=== PATIENT | female | born 1930 | race Caucasian/White ===

== ENCOUNTER 2017-08-23 13:58 | Emergency (ER) | payer MEDICARE, OTHER ==
[2017-08-23 15:42] LABS: BASOPHILS 0.2 % (0-2); EOSINOPHILS 0.3 % (0-7); HEMATOCRIT 39.3 % (36.0-48.0); HEMOGLOBIN 12.7 g/dL (12-16); IMMATURE GRANULOCYTES 0.3 % (0-5); MCH 27.9 pg (26.0-34.0); MCHC 32.3 g/dL (31.0-37.0); MCV 86.4 fL (80.0-100.0); MEAN PLATELET VOLUME 11.4 fL (7.4-10.4); MONOCYTES 9.4 % (2-11); NEUTROPHILS 74.8 % (40-80); PLATELET COUNT 111 10x3/uL (130-400); RBC 4.55 10x6/uL (4.00-5.40); RDW 14.1 % (11.5-14.5); WBC 5.7 10x3/uL (4.8-10.8)
[2017-08-23 16:01] LABS: ALBUMIN 3.7 g/dL (3.4-5.0); ANION GAP 17.1 mmol/L (8-16); BILIRUBIN - TOTAL 0.37 mg/dL (0.2-1.3); CALCIUM 8.7 mg/dL (8.5-10.1); CARBON DIOXIDE 24.8 mmol/L (21.0-32.0); CREATININE - SERUM 2.4 mg/dL (0.6-1.3); POTASSIUM - SERUM 4.9 mmol/L (3.5-5.1); PROTEIN - SERUM 6.8 g/dL (6.4-8.2)
[2017-08-27 12:41] VITALS: BMI 34.9
== END 2017-08-23 17:43 | disposition home or self-care (01) ==
LOC: D.ER 13:58
PROVIDERS: Family Medicine
DX: F41.9 Anxiety disorder, unspecified (principal); M19.90 Unspecified osteoarthritis, unspecified site; I45.2 Bifascicular block

== ENCOUNTER 2017-08-25 17:02 | Inpatient (IN) | payer MEDICARE, OTHER ==
[~2017-08-25] VITALS: Ht 165.1 cm; Wt 92.9 kg
--- NOTE | ~2017-08-25 | CN ---
PATIENT NAME:PONCE CAMERON MEDICAL RECORD: [id number] : 30 LOCATION:D.M2 D.2105 ADMIT DATE: 08/26/17 ACCOUNT: [id number] CONSULTING PHYSICIAN: TITI NEIR MD REFERRING PHYSICIAN: LAKEISHA GIBBONS MD DATE OF CONSULTATION: 08/26/2017 CONSULT REQUESTING PHYSICIAN: Lakeisha Gibbons MD REASON FOR CONSULTATION: Shortness of breath, possible pneumonia. HISTORY OF PRESENT ILLNESS: Ms. Cameron is an 86-year-old female who was sick for the last few days, feeling very weak. She has cough, which is productive with whitish color sputum production. She also feeling very lethargic and shortness of breath. Denies any fever or chill. There are no night sweats. There is no associated nausea or vomiting, no diarrhea. REVIEW OF SYSTEMS: As in history of present illness. PAST MEDICAL HISTORY: 1. Hypertension. 2. Dependent edema. 3. Anxiety. PAST SURGICAL HISTORY: 1. She has cataract surgery. 2. Bilateral mastectomy. 3. Knee replacement. 4. 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 ALLERGIES: She is allergic to CODEINE. MEDICATIONS: On [employer] was reviewed. PERSONAL AND SOCIAL HISTORY: The patient is an ex-smoker. She is a nondrinker. FAMILY HISTORY: Significant cardiovascular disease and cancer. PHYSICAL EXAMINATION: GENERAL: Now, the patient is lying comfortably. She is not in acute distress. VITAL SIGNS: The blood pressure is 137/52, pulse is 71, respirations 16, temperature 98.1, and SPO2 is 95% on 2 liters nasal cannula. HEENT: Conjunctivae are pink. Sclerae nonicteric. NECK: Supple, no JVD. CHEST: Excursion is minimal on both sides, there is elevated JVD. There are bilateral crackles. No wheezing. HEART: Rhythm regular, normal sound, no murmur. ABDOMEN: Soft, bowel sounds present. No hepatosplenomegaly. RECTAL: Deferred. EXTREMITIES: No cyanosis, no clubbing. There is 1+ pedal edema. SKIN: Warm, normal turgor. CENTRAL NERVOUS SYSTEM: The patient is awake and alert. There is no obvious cranial nerve abnormality. The gait was not tested. LABORATORY DATA: CBC: The WBC is 6.5, the hemoglobin is 12.1, the hematocrit CONSULT REPORT [id number] PONCE CAMEORN 37.2, the platelet count is 122. Chemistry: Sodium 137, potassium 4.4, BUN is 60, creatinine 2.7. Bicarbonate is 20.4. ProBNP is 808. TSH is 0.16. IMPRESSION: 1. Acute hypoxic respiratory failure secondary to; A. Pulmonary edema. B. Possible pneumonitis with acute bronchitis. 2. Acute renal failure. 3. Urinary tract infection. 4. Congestive possible diastolic dysfunction with elevated BNP. 5. Acute cough. RECOMMENDATION: 1. Continue Levaquin. I will stop the IV fluids. 2. Check the cardiac echo. 3. Mucinex DM. 4. Tessalon Perles. 5. Check the CT scan of the chest. Dr. Gibbons, thank you for involving me in the care of Ms. Cameron. TRANSINT:[id number] Voice Confirmation ID: [id number] DOCUMENT ID: [id number] TITI NERI MD CC: LAKEISHA GIBBONS MD [id number] DICTATION DATE: 08/26/171750 THREAD GRINDER TOOL: 08/26/17 1832 ADM IN [facility] [address] [place] [address]
[2017-08-25 19:45] LABS: BASOPHILS 0.1 % (0-2); EOSINOPHILS 0.1 % (0-7); HEMATOCRIT 39.9 % (36.0-48.0); HEMOGLOBIN 12.8 g/dL (12-16); IMMATURE GRANULOCYTES 0.4 % (0-5); LYMPHOCYTES 12.9 % (15-50); MCH 27.6 pg (26.0-34.0); MCHC 32.1 g/dL (31.0-37.0); MEAN PLATELET VOLUME 11.4 fL (7.4-10.4); MONOCYTES 9.2 % (2-11); NEUTROPHILS 77.3 % (40-80); PLATELET COUNT 145 10x3/uL (130-400); RBC 4.64 10x6/uL (4.00-5.40); RDW 14.4 % (11.5-14.5); WBC 9.9 10x3/uL (4.8-10.8)
[2017-08-25 19:52] LABS: ALBUMIN 3.9 g/dL (3.4-5.0); ALKALINE PHOSPHATASE 72 U/L (46-116); ALT (SGPT) 21 U/L (10-68); BILIRUBIN - TOTAL 0.34 mg/dL (0.2-1.3); CALC OSMOLALITY 292 mosm/kg (275-300); CALCIUM 8.9 mg/dL (8.5-10.1); CARBON DIOXIDE 20.4 mmol/L (21.0-32.0); CHLORIDE - SERUM 103 mmol/L (98-107); CREATININE - SERUM 2.7 mg/dL (0.6-1.3); GLUCOSE 102 mg/dL (74-106); POTASSIUM - SERUM 4.4 mmol/L (3.5-5.1); PROTEIN - SERUM 7.3 g/dL (6.4-8.2); SODIUM 138 mmol/L (136-145); UREA NITROGEN 60 mg/dL (7-18); eGFR NON AFRICAN AMERICAN 18 mL/min (90-120)
[2017-08-25 20:02] LABS: CKMB 3.1 U/L (0.0-3.6); CREATINE KINASE 67 UL (21-215); PRO BNP 808 pg/mL (0-450); THYROID STIMULATING HORMONE 0.16 uIU/mL (0.36-3.74)
[2017-08-25 23:59] LABS: APPEARANCE HAZY (CLEAR); BILIRUBIN NEGATIVE (NEGATIVE); COLOR YELLOW (YELLOW); GLUCOSE NEGATIVE (NEGATIVE); KETONE NEGATIVE (NEGATIVE); NITRITE NEGATIVE (NEGATIVE); PROTEIN 1+ mg/dL (NEGATIVE); SPECIFIC GRAVITY 1.025 (1.005-1.020); UROBILINOGEN NORMAL (NORMAL)
[2017-08-26] LABS: BACTERIA MODERATE /hpf (NONE SEEN); EPITHELIAL CELLS 0-5 /hpf (0-5); HYALINE CAST 0-5 /lpf (NONE SEEN)
[2017-08-26 07:53] LABS: BASOPHILS 0 % (0-2); EOSINOPHILS 0 % (0-7); HEMATOCRIT 37.2 % (36.0-48.0); HEMOGLOBIN 12.1 g/dL (12-16); IMMATURE GRANULOCYTES 0.3 % (0-5); LYMPHOCYTES 8.8 % (15-50); MCH 27.9 pg (26.0-34.0); MCHC 32.5 g/dL (31.0-37.0); MCV 85.7 fL (80.0-100.0); MEAN PLATELET VOLUME 11.1 fL (7.4-10.4); NEUTROPHILS 84.9 % (40-80); PLATELET COUNT 122 10x3/uL (130-400); RBC 4.34 10x6/uL (4.00-5.40); RDW 14.3 % (11.5-14.5)
[2017-08-26 07:54] LABS: WBC 6.5 10x3/uL (4.8-10.8)
[2017-08-26 08:06] LABS: ANION GAP 13.8 mmol/L (8-16); CALCIUM 8.7 mg/dL (8.5-10.1); CARBON DIOXIDE 25.5 mmol/L (21.0-32.0); CREATININE - SERUM 2.3 mg/dL (0.6-1.3)
[2017-08-26 08:08] LABS: POTASSIUM - SERUM 5.3 mmol/L (3.5-5.1)
[2017-08-26 11:11] VITALS: BP 137/52; BMI 35.0
[2017-08-26] MEDS ORDERED: ULTRAM50 MG PO (13:52)
[2017-08-26] MEDS ORDERED: PHENERGAN25 M1 PO (13:53)
[2017-08-26] MEDS ORDERED: ATIVAN1 MG PO (13:54)
[2017-08-26] MEDS ORDERED: NEURONTIN 300300 MG PO (13:54)
[2017-08-26] MEDS ORDERED: DIOVAN80 MG PO (13:54)
[2017-08-26] MEDS ORDERED: LIPITOR20 MG PO (13:55)
[2017-08-26] MEDS ORDERED: ASPIRIN EC81 M1 PO (13:55)
[2017-08-26 20:00] VITALS: BP 142/56
[2017-08-27] VITALS: BP 101/33
[2017-08-27 03:54] LABS: BASOPHILS 0 % (0-2); EOSINOPHILS 0 % (0-7); HEMATOCRIT 34.2 % (36.0-48.0); HEMOGLOBIN 11.1 g/dL (12-16); IMMATURE GRANULOCYTES 0.2 % (0-5); LYMPHOCYTES 9.5 % (15-50); MCH 27.8 pg (26.0-34.0); MCHC 32.5 g/dL (31.0-37.0); MCV 85.7 fL (80.0-100.0); MEAN PLATELET VOLUME 10.9 fL (7.4-10.4); MONOCYTES 7.8 % (2-11); NEUTROPHILS 82.5 % (40-80); PLATELET COUNT 117 10x3/uL (130-400); RBC 3.99 10x6/uL (4.00-5.40); RDW 14.2 % (11.5-14.5); WBC 5.4 10x3/uL (4.8-10.8)
[2017-08-27 04:00] VITALS: BP 107/44
[2017-08-27 04:08] LABS: ANION GAP 9.9 mmol/L (8-16); CALCIUM 8.6 mg/dL (8.5-10.1); CREATININE - SERUM 1.9 mg/dL (0.6-1.3); POTASSIUM - SERUM 4.9 mmol/L (3.5-5.1)
[2017-08-27 09:10] VITALS: BP 126/46
[2017-08-27 10:36] VITALS: BMI 34.9
[2017-08-27 12:41] VITALS: Ht 165.1 cm; Wt 92.9 kg
[2017-08-27 12:55] VITALS: BP 125/49
[2017-08-27 18:30] VITALS: BP 126/44
[2017-08-27 20:54] VITALS: BP 124/45
[2017-08-28 04:16] LABS: BASOPHILS 0 % (0-2); EOSINOPHILS 0.1 % (0-7); HEMATOCRIT 37.4 % (36.0-48.0); HEMOGLOBIN 11.8 g/dL (12-16); IMMATURE GRANULOCYTES 0.8 % (0-5); LYMPHOCYTES 9.4 % (15-50); MCH 27.4 pg (26.0-34.0); MCHC 31.6 g/dL (31.0-37.0); MEAN PLATELET VOLUME 10.9 fL (7.4-10.4); MONOCYTES 9.3 % (2-11); NEUTROPHILS 80.4 % (40-80); PLATELET COUNT 132 10x3/uL (130-400); RDW 14.5 % (11.5-14.5)
[2017-08-28 04:21] LABS: WBC 7.5 10x3/uL (4.8-10.8)
[2017-08-28 04:39] LABS: ALBUMIN 3.4 g/dL (3.4-5.0); ANION GAP 11.8 mmol/L (8-16); BILIRUBIN - DIRECT 0.05 mg/dL (0.00-0.30); BILIRUBIN - TOTAL 0.3 mg/dL (0.2-1.3); CREATININE - SERUM 1.5 mg/dL (0.6-1.3); LDL-HDL RATIO 0.8 ratio (1.5-3.5); POTASSIUM - SERUM 4.8 mmol/L (3.5-5.1); PROTEIN - SERUM 6.5 g/dL (6.4-8.2)
[2017-08-28 05:03] LABS: ERYTHROCYTE SEDIMENTATION RATE 6 mm/hr (0-42)
[2017-08-28 06:52] VITALS: BP 133/56
[2017-08-28 10:06] VITALS: BP 113/56
[2017-08-28 12:31] VITALS: BP 113/56
[2017-08-28 17:43] VITALS: BP 153/57
[2017-08-28 20:00] VITALS: BP 132/46
[2017-08-29] VITALS: BP 176/69
[2017-08-29 04:00] VITALS: BP 161/65
[2017-08-29 05:24] LABS: BASOPHILS 0.1 % (0-2); EOSINOPHILS 0 % (0-7); HEMATOCRIT 38.3 % (36.0-48.0); HEMOGLOBIN 12.4 g/dL (12-16); IMMATURE GRANULOCYTES 1.3 % (0-5); LYMPHOCYTES 8.6 % (15-50); MCH 27.7 pg (26.0-34.0); MCHC 32.4 g/dL (31.0-37.0); MCV 85.5 fL (80.0-100.0); MONOCYTES 7.3 % (2-11); NEUTROPHILS 82.7 % (40-80); PLATELET COUNT 130 10x3/uL (130-400); RBC 4.48 10x6/uL (4.00-5.40); RDW 14.5 % (11.5-14.5); WBC 6.9 10x3/uL (4.8-10.8)
[2017-08-29 05:48] LABS: ANION GAP 13.7 mmol/L (8-16); CALCIUM 8.7 mg/dL (8.5-10.1); CARBON DIOXIDE 25.7 mmol/L (21.0-32.0); CREATININE - SERUM 1.3 mg/dL (0.6-1.3); POTASSIUM - SERUM 4.4 mmol/L (3.5-5.1)
[2017-08-29 09:20] VITALS: BP 163/61
[2017-08-29 11:43] VITALS: BP 160/71
[2017-08-29 16:10] VITALS: BP 146/64
[2017-08-30 04:00] VITALS: BP 148/60
[2017-08-30 05:09] LABS: BASOPHILS 0 % (0-2); EOSINOPHILS 0 % (0-7); HEMATOCRIT 37.1 % (36.0-48.0); HEMOGLOBIN 11.9 g/dL (12-16); IMMATURE GRANULOCYTES 1.1 % (0-5); LYMPHOCYTES 10.9 % (15-50); MCH 27.4 pg (26.0-34.0); MCHC 32.1 g/dL (31.0-37.0); MCV 85.3 fL (80.0-100.0); MEAN PLATELET VOLUME 10.5 fL (7.4-10.4); MONOCYTES 7.1 % (2-11); NEUTROPHILS 80.9 % (40-80); PLATELET COUNT 124 10x3/uL (130-400); RBC 4.35 10x6/uL (4.00-5.40); RDW 14.5 % (11.5-14.5); WBC 6.2 10x3/uL (4.8-10.8)
[2017-08-30 05:15] LABS: ANION GAP 11.8 mmol/L (8-16); CALCIUM 8.4 mg/dL (8.5-10.1); CARBON DIOXIDE 26.6 mmol/L (21.0-32.0); CREATININE - SERUM 1.2 mg/dL (0.6-1.3); POTASSIUM - SERUM 4.4 mmol/L (3.5-5.1)
[2017-08-30 09:01] VITALS: BP 175/73
[2017-08-30 12:58] VITALS: BP 163/62
== END 2017-08-30 16:30 | disposition home health service (06) | DRG 682 ==
LOC: D.ER 17:02 → D.M2 08-26 05:43 → D.SDCHOLD 08-26 05:43 → D.M2 08-26 09:44
PROVIDERS: Family Medicine
DX: N17.9 Acute kidney failure, unspecified (principal); J18.9 Pneumonia, unspecified organism; J96.01 Acute respiratory failure with hypoxia; N39.0 Urinary tract infection, site not specified; I50.30 Unspecified diastolic (congestive) heart failure; J20.9 Acute bronchitis, unspecified; I11.0 Hypertensive heart disease with heart failure; M54.12 Radiculopathy, cervical region; I08.0 Rheumatic disorders of both mitral and aortic valves; M17.12 Unilateral primary osteoarthritis, left knee; M19.012 Primary osteoarthritis, left shoulder; F41.9 Anxiety disorder, unspecified; Z87.891 Personal history of nicotine dependence

== ENCOUNTER → 2017-10-21 17:52 | Outpatient (CLI) | payer MEDICARE, OTHER ==
[2017-08-27 12:41] VITALS: BMI 34.9
[~2017-10-21 17:52] MED LIST: ASPIRIN EC81 M1 PO; ATIVAN1 MG PO; DIOVAN80 MG PO; ELIQUIS2.5 MG PO; HYDROCODONE-APA1 TAB PO; LIPITOR20 MG PO; NEURONTIN 300300 MG PO; PHENERGAN25 M1 PO; ULTRAM50 MG PO
== END | disposition home or self-care (01) ==
LOC: D.LABREF 17:52
DX: M17.12 Unilateral primary osteoarthritis, left knee (principal); Z11.8 Encounter for screening for other infectious and parasitic diseases

== ENCOUNTER 2017-11-03 09:34 | Inpatient (IN) | payer MEDICARE, OTHER ==
[~2017-11-03] VITALS: Ht 165.1 cm; Wt 89.5 kg
--- NOTE | ~2017-11-03 | OP ---
PATIENT NAME: TEENA FALL MEDICAL RECORD: [id number] :30 LOCATION:D.MS [id number] ADMISSION DATE:11/08/17 SURGEON: ROMEL HERNANDEZ MD DATE OF OPERATION: 11/08/2017 PREOPERATIVE DIAGNOSIS: Severe degenerative arthritis of the left knee. POSTOPERATIVE DIAGNOSIS: Severe degenerative arthritis of the left knee. PROCEDURE: Left total knee arthroplasty. SURGEON: Romel Hernandez MD ANESTHESIA: General. INTRAOPERATIVE COMPLICATIONS: None. SUMMARY OF PATHOLOGIC FINDINGS: Severe valgus degenerative arthritis of the knee. IMPLANTS USED: Garrett Triathlon total knee arthroplasty with size #5 distal femur, #5 tibial baseplate, #9 polyethylene insert, and a 31 x 9 patella. OPERATIVE SUMMARY IN DETAIL: After obtaining the appropriate preoperative orthopedic surgery consent as well as anesthetic consultation, evaluation, and clearance, the patient was brought to the operating room and placed on the operating table in supine position. After adequate general laryngeal mask airway was administered, tourniquet was placed about the proximal aspect of left lower extremity. Left lower extremity was prepped and draped in routine sterile fashion. Leg was elevated and exsanguinated. Tourniquet was inflated to 350 mmHg. Midline incision was taken down for paramedian arthrotomy. Patella was everted and distal femur was exposed. Soft tissue excision was done in usual fashion. Intramedullary guide hole was created for distal intramedullary-guided femoral cut. This was followed by complete exposure of the proximal tibia. Proximal tibia was cut and found to be cut short, had to be cut again because of the severe valgus nature of the knee. After the second cut, the trials corresponding to the above-mentioned implants were appropriate. Knee was taken through range of motion, found to be stable in all planes. Distal femoral final guide preparations were made along with proximal tibial preparations. At this point, the patella was excised in preparations for a 31 x 9 mm. This was taken off the patella for replacement with the 9 x 31 patella. Final patellar preparations were made. The knee was irrigated in pulsatile lavage fashion. Bone ends were dried. Final components were cemented into place. All excess cement was removed. After the cement was allowed to harden, the knee was taken through range of motion and found to be stable in all planes. Paramedian arthrotomy was closed with #2 Ethibond followed by #1 Vicryl, 2-0 Vicryl, and skin sourav. Sterile dressings were applied. The patient was awakened and taken to recovery room in stable condition. All final needle and sponge counts were correct. TRANSINT:[id number] Voice Confirmation ID: [id number] DOCUMENT ID: [id number] OPERATIVE REPORT [id number] TEENA FALL MD, ROMEL SUN at 1842 CC: [id number] DICTATION DATE: 11/08/17913 INTERACTIVE PRODUCER: 11/08/17 1252 ADM IN [facility] [address] [place] [id number]
[~2017-11-03 09:34] MED LIST changes: -ELIQUIS2.5 MG PO; -HYDROCODONE-APA1 TAB PO
[2017-11-03 11:53] LABS: BASOPHILS 0.2 % (0-2); EOSINOPHILS 1.5 % (0-7); HEMATOCRIT 39.7 % (36.0-48.0); HEMOGLOBIN 13.2 g/dL (12-16); IMMATURE GRANULOCYTES 0.2 % (0-5); LYMPHOCYTES 19.7 % (15-50); MCH 29.5 pg (26.0-34.0); MCHC 33.2 g/dL (31.0-37.0); MCV 88.8 fL (80.0-100.0); MEAN PLATELET VOLUME 10.9 fL (7.4-10.4); MONOCYTES 8.4 % (2-11); PLATELET COUNT 136 10x3/uL (130-400); RBC 4.47 10x6/uL (4.00-5.40); RDW 17.3 % (11.5-14.5); WBC 4.8 10x3/uL (4.8-10.8)
[2017-11-03 12:00] LABS: APTT 30.5 SECONDS (22.8-39.4); INR 0.92 (0.85-1.17)
[2017-11-03 12:10] LABS: ANION GAP 14.2 mmol/L (8-16); CALCIUM 9.4 mg/dL (8.5-10.1); CARBON DIOXIDE 27.6 mmol/L (21.0-32.0); CREATININE - SERUM 1.1 mg/dL (0.6-1.3); POTASSIUM - SERUM 3.8 mmol/L (3.5-5.1)
[2017-11-03 12:25] LABS: APPEARANCE CLEAR (CLEAR); BILIRUBIN NEGATIVE (NEGATIVE); COLOR YELLOW (YELLOW); GLUCOSE NEGATIVE (NEGATIVE); KETONE NEGATIVE (NEGATIVE); NITRITE NEGATIVE (NEGATIVE); PROTEIN NEGATIVE (NEGATIVE); SPECIFIC GRAVITY 1.015 (1.005-1.020); UROBILINOGEN NORMAL (NORMAL)
[2017-11-03 12:28] LABS: BACTERIA FEW /hpf (NONE SEEN); EPITHELIAL CELLS 0-5 /hpf (0-5); MUCUS <1+ /lpf (NONE SEEN); WHITE CELLS - URINE 0-5 /hpf (0-5)
[2017-11-08 06:03] VITALS: BP 127/57; BMI 32.6
[2017-11-08 12:39] VITALS: BP 104/69
[2017-11-08 12:52] VITALS: BP 104/64; Ht 165.1 cm; Wt 89.5 kg
[2017-11-08 13:42] VITALS: BP 90/44
[2017-11-08 22:20] VITALS: BP 100/48
[2017-11-09 01:22] VITALS: BP 112/54
[2017-11-09 04:45] VITALS: BP 101/35
[2017-11-09 07:12] LABS: HEMATOCRIT 31.4 % (36.0-48.0); HEMOGLOBIN 10.1 g/dL (12-16); MCH 29.3 pg (26.0-34.0); MCHC 32.2 g/dL (31.0-37.0); MEAN PLATELET VOLUME 10.5 fL (7.4-10.4); RBC 3.45 10x6/uL (4.00-5.40); RDW 17.1 % (11.5-14.5); WBC 10.5 10x3/uL (4.8-10.8)
[2017-11-09 10:38] VITALS: BP 98/35
[2017-11-09 15:04] VITALS: BP 86/56
[2017-11-09 19:08] VITALS: BP 90/35
[2017-11-09 20:24] VITALS: BP 94/38
[2017-11-10 00:16] VITALS: BP 85/33
[2017-11-10 05:05] VITALS: BP 112/49
[2017-11-10 06:18] LABS: HEMATOCRIT 27.7 % (36.0-48.0); HEMOGLOBIN 8.9 g/dL (12-16); MCH 29.2 pg (26.0-34.0); MCHC 32.1 g/dL (31.0-37.0); MCV 90.8 fL (80.0-100.0); MEAN PLATELET VOLUME 10.4 fL (7.4-10.4); RBC 3.05 10x6/uL (4.00-5.40); RDW 17.3 % (11.5-14.5)
[2017-11-10 06:24] LABS: WBC 7.7 10x3/uL (4.8-10.8)
[2017-11-10 08:15] VITALS: BP 99/44
[2017-11-10 12:26] VITALS: BP 81/39
[2017-11-10 16:25] VITALS: BP 105/54
[2017-11-10 21:54] VITALS: BP 119/51
[2017-11-11 04:47] VITALS: BP 164/84
[2017-11-11 08:34] VITALS: BP 121/48
[2017-11-11 11:48] VITALS: BP 105/37
[2017-11-11 13:57] LABS: BASOPHILS 0.2 % (0-2); EOSINOPHILS 3.8 % (0-7); HEMATOCRIT 28.5 % (36.0-48.0); HEMOGLOBIN 9.2 g/dL (12-16); IMMATURE GRANULOCYTES 0.5 % (0-5); LYMPHOCYTES 13.1 % (15-50); MCHC 32.3 g/dL (31.0-37.0); MCV 89.9 fL (80.0-100.0); MEAN PLATELET VOLUME 10.3 fL (7.4-10.4); MONOCYTES 11.1 % (2-11); NEUTROPHILS 71.3 % (40-80); PLATELET COUNT 124 10x3/uL (130-400); RBC 3.17 10x6/uL (4.00-5.40); WBC 5.8 10x3/uL (4.8-10.8)
[2017-11-11 16:14] VITALS: BP 109/40
[2017-11-11 21:03] VITALS: BP 108/36
[2017-11-12 00:58] VITALS: BP 124/54
[2017-11-12 08:02] VITALS: BP 142/42
[2017-11-12] MEDS ORDERED: ELIQUIS2.5 MG PO (10:04)
[2017-11-12] MEDS ORDERED: HYDROCODONE-APA1 TAB PO (10:45)
== END 2017-11-12 13:21 | DRG 470 ==
LOC: D.SDCHOLD 09:34 → D.MS 11-08 05:00 → D.SDCHOLD 11-08 05:00 → D.MS 11-08 11:46
PROVIDERS: Orthopaedic Surgery; Orthopaedic Surgery Foot and Ankle Surgery
PROC: 0SRD0J9 Replacement of Left Knee Joint with Synthetic Substitute, Cemented, Open Approach (ICD-10-PCS; principal; 2017-11-08 07:30)
DX: M17.12 Unilateral primary osteoarthritis, left knee (principal); I10 Essential (primary) hypertension; M54.12 Radiculopathy, cervical region; Z87.891 Personal history of nicotine dependence

== ENCOUNTER → 2018-01-04 17:13 | Outpatient (CLI) | payer MEDICARE, OTHER ==
[2017-11-08 12:52] VITALS: BMI 32.8
[~2018-01-04 17:13] MED LIST changes: +ELIQUIS2.5 MG PO; +HYDROCODONE-APA1 TAB PO
== END | disposition home or self-care (01) ==
LOC: D.LABREF 17:13
DX: N39.0 Urinary tract infection, site not specified (principal); R31.9 Hematuria, unspecified